=== PATIENT | male | born 1935 | race Caucasian/White ===

== ENCOUNTER 2017-06-12 15:55 | Emergency (ER) | payer MEDICARE, MEDICAID ==
[~2017-06-12] VITALS: Ht 177.8 cm; Wt 90.0 kg
[~2017-06-12 15:55] MED LIST: AMLODIPINE5 MG PO; ASPIRIN ADULT L81 M2 PO; CIPRO500 MG OR; CIPROFLOXACN250 MG PO; CIPROFLOXACN500 MG PO; COUMADIN4 MG OR; DONEPEZIL5 MG PO; FERROUS SULF325 M2 PO; FLOMAX0.4 M1 PO; LANOXIN0.25 MG OR; LISINOPRIL40 MG PO; METO50TA52 PO; OMEPRAZOLE20 MG OR; OMEPRAZOLE20 MG PO; PANTOPRAZOLE SO40 MG PO; PRAVASTATIN40 MG PO; SB ASA LOW81 MG OR; SIMVASTATIN80 MG OR; WARFARIN2 MG OR; WARFARIN4 MG PO
[2017-06-12] MEDS ORDERED: AMLODIPINE5 MG PO (16:08)
[2017-06-12 16:35] LABS: HEMATOCRIT 41.4 % (39.0-50.0); HEMOGLOBIN 13.3 g/dl (14.0-18.0); IMMATURE GRANULOCYTES 0.5 % (0.0-1.0); MEAN CELL VOLUME 94.1 fL CALC (80.0-100.0); MEAN CORPUSCULAR HGB 30.2 pG CALC (26.0-32.0); MEAN CORPUSCULAR HGB CONC 32.1 g/L CALC (32.0-36.0); NEUT# 6.44 thou/uL (1.82-7.42); RED BLOOD COUNT 4.4 mill/uL (4.70-6.10); RED CELL DISTRI WIDTH 13.7 % (11.5-15.5)
[2017-06-12 16:52] LABS: INTERNATIONAL NORMALIZED RATIO 1.5 RATIO (0.7-1.3); PROTHROMBIN TIME 17.4 SECONDS (9.0-12.5)
[2017-06-12 16:55] LABS: ALBUMIN 3.8 g/dL (3.2-5.0); ALKALINE PHOSPHATASE 101 u/l (38-126); ANION GAP 17 (6-22 (CALC)); BILIRUBIN, TOTAL 0.8 mg/dL (0.0-1.4); BUN 16 mg/dL (8-23); BUN/CREATININE RATIO 13 (12-20 (CALC)); CALCIUM 8.8 mg/dL (8.4-10.2); CARBON DIOXIDE 22 mmol/l (22-30); CHLORIDE 109 mmol/l (95-108); CREATININE 1.2 mg/dL (0.7-1.3); GFR 58 ML/MIN (>=60 (CALC)); GFR FOR AFR.AMER. > 60 ML/MIN (>=60 (CALC)); GLUCOSE 107 mg/dL (82-115); SGOT/AST 27 u/l (19-48); SGPT/ALT 24 u/l (11-66); SODIUM 144 mmol/l (137-146); TOTAL PROTEIN 6.6 g/dL (6.3-8.2)
[2017-06-12 19:31] VITALS: BP 112/74
== END 2017-06-12 19:33 | disposition short-term general hospital (02) ==
LOC: ED 15:55
PROVIDERS: Emergency Medicine
DX: S72.122A Displaced fracture of lesser trochanter of left femur, initial encounter for closed fracture (principal); S72.342A Displaced spiral fracture of shaft of left femur, initial encounter for closed fracture; M25.512 Pain in left shoulder; M25.552 Pain in left hip; W01.0XXA Fall on same level from slipping, tripping and stumbling without subsequent striking against object, initial encounter; Y93.H9 Activity, other involving exterior property and land maintenance, building and construction; Y92.008 Other place in unspecified non-institutional (private) residence as the place of occurrence of the external cause

== ENCOUNTER 2018-11-23 17:02 | Emergency (ER) | payer MEDICARE, MEDICAID ==
[~2018-11-23] VITALS: Ht 177.8 cm; Wt 78.0 kg
[2018-11-23] MEDS ORDERED: LOPRESSOR 550 MG/TAB PO (17:52)
[2018-11-23] MEDS ORDERED: SLOW-MAG PO (17:57)
[2018-11-23 18:35] LABS: HEMATOCRIT 38.4 % (39.0-50.0); IMMATURE GRANULOCYTES 0.4 % (0.0-5.0); MEAN CORPUSCULAR HGB 29.1 pG CALC (26.0-32.0); MEAN CORPUSCULAR HGB CONC 31.3 g/L CALC (32.0-36.0); NEUT# 3.51 thou/uL (1.82-7.42); RED BLOOD COUNT 4.13 mill/uL (4.70-6.10); RED CELL DISTRI WIDTH 14.6 % (11.5-15.5)
[2018-11-23 18:58] LABS: ACT PARTIAL THROMBO TIME 40.4 SECONDS (20.0-32.5)
[2018-11-23 18:59] LABS: ALBUMIN 3.3 g/dL (3.2-5.0); ALKALINE PHOSPHATASE 83 u/l (38-126); ANION GAP 10 (6-22 (CALC)); BILIRUBIN, TOTAL 0.4 mg/dL (0.0-1.4); BUN 17 mg/dL (8-23); BUN/CREATININE RATIO 16 (12-20 (CALC)); CARBON DIOXIDE 26 mmol/l (22-30); CHLORIDE 109 mmol/l (95-108); CREATININE 1.1 mg/dL (0.7-1.3); GFR > 60 ML/MIN (>=60 (CALC)); GFR FOR AFR.AMER. > 60 ML/MIN (>=60 (CALC)); POTASSIUM 4.3 mmol/l (3.5-5.1); SGOT/AST 24 u/l (19-48); SODIUM 141 mmol/l (137-146)
[2018-11-23 19:03] LABS: INTERNATIONAL NORMALIZED RATIO 3.4 RATIO (0.7-1.3); PROTHROMBIN TIME 34.9 SECONDS (9.0-12.5)
[2018-11-23 19:50] VITALS: BP 144/77
== END 2018-11-23 19:52 | disposition home or self-care (01) ==
LOC: ED 17:02
DX: R04.0 Epistaxis (principal); T45.515A Adverse effect of anticoagulants, initial encounter; I10 Essential (primary) hypertension; Z95.0 Presence of cardiac pacemaker; I48.91 Unspecified atrial fibrillation; Z79.01 Long term (current) use of anticoagulants

== ENCOUNTER 2019-01-15 10:01 | Emergency (ER) | payer MEDICARE, MEDICAID ==
[~2019-01-15] VITALS: Ht 177.8 cm; Wt 65.0 kg
[~2019-01-15 10:01] MED LIST changes: +AMLODIPINE BESYL5 MG PO; +LOPRESSOR 550 MG/TAB PO; +SLOW-MAG PO
[2019-01-15] MEDS ORDERED: PERCOCET 5/325M1 TAB PO (11:49)
[2019-01-15] MEDS ORDERED: KEFLEX500 M1 PO (11:49)
[2019-01-15 12:30] VITALS: BP 138/70
[2019-01-15] MEDS ORDERED: OMEPRAZOLE DR20 MG PO (12:33)
== END 2019-01-15 12:30 | disposition home or self-care (01) ==
LOC: ED 10:01
PROC: 2W3CX1Z Immobilization of Right Lower Arm using Splint (ICD-10-PCS; principal; 2019-01-15)
DX: S52.591A Other fractures of lower end of right radius, initial encounter for closed fracture (principal); I10 Essential (primary) hypertension; I48.91 Unspecified atrial fibrillation; W01.0XXA Fall on same level from slipping, tripping and stumbling without subsequent striking against object, initial encounter; Y92.009 Unspecified place in unspecified non-institutional (private) residence as the place of occurrence of the external cause; Z95.0 Presence of cardiac pacemaker

== ENCOUNTER 2021-10-21 12:10 | Emergency (ER) | payer MEDICARE, MEDICAID ==
[~2021-10-21] VITALS: Ht 177.8 cm; Wt 73.6 kg
[2021-10-21 12:10] VITALS: BP 140/73
[~2021-10-21 12:10] MED LIST changes: +KEFLEX500 M1 PO; +OMEPRAZOLE DR20 MG PO; +PERCOCET 5/325M1 TAB PO
== END 2021-10-21 13:24 | disposition home or self-care (01) ==
LOC: ED 12:10
DX: S51.011A Laceration without foreign body of right elbow, initial encounter (principal); M25.511 Pain in right shoulder; I10 Essential (primary) hypertension; I48.91 Unspecified atrial fibrillation; W01.0XXA Fall on same level from slipping, tripping and stumbling without subsequent striking against object, initial encounter; Y92.009 Unspecified place in unspecified non-institutional (private) residence as the place of occurrence of the external cause; Z95.0 Presence of cardiac pacemaker

== ENCOUNTER 2021-10-29 15:12 | Observation (INO) | payer MEDICARE, MEDICAID ==
[2021-10-29] VITALS (7 sets, daily range): BP systolic 103–130; BP diastolic 56–88
[~2021-10-29] VITALS: Ht 177.8 cm; Wt 74.0 kg
[~2021-10-29 15:12] MED LIST changes: -LOPRESSOR 550 MG/TAB PO; +MAGNESIUM OXID400 M1 PO; +METOPROLOL SUCC50 MG PO; -SLOW-MAG PO
--- NOTE | 2021-10-29 16:00 | NUR ---
PT AMBULATES TO ROOM WITH AT BEDSIDE FOR EVAL OF GEN WEAKNESS, BACK AND ABD PAIN
[2021-10-29 17:09] LABS: ALBUMIN 3.6 g/dL (3.2-5.0); BILIRUBIN, TOTAL 0.5 mg/dL (0.0-1.4); MAGNESIUM 2.3 mg/dL (1.6-2.3); POTASSIUM 4.9 mmol/l (3.5-5.1); TOTAL PROTEIN 6.7 g/dL (6.3-8.2)
[2021-10-29 17:10] LABS: ACT PARTIAL THROMBO TIME 30.8 SECONDS (20.0-32.5)
[2021-10-29 17:15] LABS: PROTHROMBIN TIME 20.3 SECONDS (9.0-12.5)
[2021-10-29 17:20] LABS: IMMATURE GRANULOCYTES 0.2 % (0.0-5.0); MEAN CELL VOLUME 96.4 fL CALC (80.0-100.0); MEAN CORPUSCULAR HGB 29.8 pG CALC (26.0-32.0); MEAN CORPUSCULAR HGB CONC 30.9 g/dL CAL (32.0-36.0); NEUT# 4.79 thou/uL (1.82-7.42); RED BLOOD COUNT 3.36 mill/uL (4.70-6.10); RED CELL DISTRI WIDTH 14.8 % (11.5-15.5)
[2021-10-29 17:24] LABS: HEMATOCRIT 32.4 % (39.0-50.0)
--- NOTE | 2021-10-29 17:25 | NUR ---
URINAL PROVIDED TO PT TO ENCOURAGE URINATION FOR SAMPLE
--- NOTE | 2021-10-29 18:11 | NUR ---
URINE SAMPLE COLLECTED AT THIS TIME. PT RESTING COMFORTBALY, VSS
[2021-10-29 18:15] LABS: URINE BILIRUBIN - DIPSTICK NEGATIVE (NEGATIVE); URINE BLOOD DIPSTICK NEGATIVE (NEGATIVE); URINE COLOR YELLOW; URINE GLUCOSE - DIPSTICK NEGATIVE (NEGATIVE); URINE KETONE NEGATIVE (NEGATIVE); URINE LEUK ESTERASE NEGATIVE (NEGATIVE); URINE PROTEIN - DIPSTICK NEGATIVE (NEG-TRACE); URINE UROBILINOGEN - DIPSTICK 0.2 E.U./dL (0.2)
[2021-10-29 18:18] LABS: URINE NITRITE - DIPSTICK NEGATIVE (Negative)
--- NOTE | 2021-10-29 19:06 | NUR ---
Reassessment of patient completed. No distress noted.
--- NOTE | 2021-10-29 20:55 | NUR ---
PT TRANSPORTED TO ROOM 270 VIA WHEELCHAIR BY RN. PT ORIENTED TO ROOM AND GREETED BY RN AND STAFF.
--- NOTE | 2021-10-29 22:00 | NUR ---
PATIENT ADMITTED FROM ER VIA WHEELCHAIR WITH ER STAFF IN ATTENDANCE. PATIENT IS ABLE TO TRANSFER TO THE BED-STEADY ON HIS FEET. AWAKE ALERT AND ORIJENTEDX3. PATIENT ADMITTED FOR DEHYDRATION AND CAM. STATES THAT HE DID HAVE FAIRLY RECENT FALL AT HOME AND FEELING WEAK. TELE MONITOR APPLIED AND READING A-FIB 80'S. PATIENT WITH IV SITE TO LAC INTACT AND IVF NS HUNG AND INFUSING AT 100CC/HR. LUNGS ARE CLEAR. ABD IS SOFT WITH ACTIVE BS. LAST BM WAS YESTERDAY 10/28. STATES THAT HE IS VOIDING OK BUT DOES GET UP A COUPLE TIMES AT NIGHT. NO PERIPHERAL EDEMA-PULSES ARE PALPABLE. STATES THAT HE DID HAVE FALL FAIRLY RECENTLY AND HAS ABRASION TO RIGHT ARM. DRESSING WAS REMOVED WITH SMALL AMT OF OLD BLOODY DRAINAGE NOTED. PHOTO WAS TAKEN FOR THE CHART. STERI-STRIPS IN PLACE WOUND COVERED WITH TELFA AND GAUZE WRAP APPLIED. SECURED WITH CCOBAN. PATIENT ORIENTED TO ROOM AND SURROUNDINGS. INSTRUCTED ON USE OF NURSE CALL LIGHT SYSTEM AND TV REMOTE. SAFETY PRECAUTIONS REINFORCED. CALL LIGHT IN REACH. WILL CONT TO MONITOR.
[2021-10-30] VITALS (7 sets, daily range): BP systolic 106–126; BP diastolic 49–565
--- NOTE | 2021-10-30 04:21 | NUR ---
PATIENT RESTING IN BED WITH EYES CLOSED. RESPS ARE EVEN AND UNLABORED. TELE MONITOR IN PLACE. IVF NS PATENT AND INFUSING VIA LAC AT 100CC/HR. CALL LIGHT IN REACH. WILL CONT TO MONITOR.
[2021-10-30 05:16] LABS: HEMOGLOBIN 9.4 g/dl (14.0-18.0); MEAN CELL VOLUME 96.8 fL CALC (80.0-100.0); MEAN CORPUSCULAR HGB 30.3 pG CALC (26.0-32.0); MEAN CORPUSCULAR HGB CONC 31.3 g/dL CAL (32.0-36.0); RED BLOOD COUNT 3.1 mill/uL (4.70-6.10); RED CELL DISTRI WIDTH 14.8 % (11.5-15.5)
[2021-10-30 05:35] LABS: CREATININE 1.6 mg/dL (0.7-1.3); POTASSIUM 4.4 mmol/l (3.5-5.1)
--- NOTE | 2021-10-30 06:54 | NUR ---
Patient is screened for intervention and would benefit from PT consult if medical agrees
--- NOTE | 2021-10-30 07:15 | NUR ---
RECEIVED REPORT FROM NICANOR HEADLEY.
--- NOTE | 2021-10-30 08:40 | NUR ---
PT RESTING IN LOW FOWLERS POSITION AWOKE UPON GREETING. A/OX3 ASSESSMENT AND VS COMPLETED . HEART RHYTHM IRREGULAR WITH TELE IN PLACE. RESPIRATIONS EVEN AND UNLABORED. BOWEL SOUNDS ACTIVE. IV 20G LAC PATENT/NS@100. PT ASSISTED WITH SETTING UP BREAKFAST TRAY. PT DENIES ADDITIONAL NEEDS AT THE MOMENT. ALL SAFETY PRECAUTIONS IN PLACE WITH CALL LIGHT IN REACH.
[2021-10-30] MEDS ORDERED: ASPIRIN 81 LOW81 MG PO (09:17)
[2021-10-30] MEDS ORDERED: FUROSEMIDE20 MG PO (09:18)
[2021-10-30] MEDS ORDERED: ALLERGY RE50 MCG/ACT (09:25)
[2021-10-30] MEDS ORDERED: MEDDOSEPAK PO (09:36)
--- NOTE | 2021-10-30 12:40 | NUR ---
PT RESTING IN LOW FOWLERS POSITION .TELE IN PLACE .PT DENIES ADDITIONAL NEEDS AT THE MOMENT. ALL SAFETY PRECAUTIONS IN PLACE WITH CALL LIGHT IN REACH.
--- NOTE | 2021-10-30 15:41 | NUR ---
PT RESTING IN LOW FOWLERS POSITION . PT DENIES ADDITIONAL NEEDS AT THE MOMENT TELE IN PLACE . ALL SAFETY PRECAUTIONS IN PLACE WITH CALL LIGHT IN REACH.
--- NOTE | 2021-10-30 17:43 | NUR ---
#20G LAC LEAKING, REMOVED WITH CATH INTACT. PT TO BE DC. NO NEW IV AND TELE REMOVED. ER INFORMED.
--- NOTE | 2021-10-30 18:23 | NUR ---
PT AND IWFE EDUCATED ON DC INSTRUCTIONS AND CHANGE IN MEDICATIONS. VERBLAIZED UNDERSTANDING. IV AND TELE REMOVED. PT INFORMED OF CM FOLLOW UP FOR HOME HEALTH. VERBLAIZED UNDERSTANDING.
--- NOTE | 2021-10-30 18:31 | NUR ---
Discharge instructions given. Patient verbalizes understanding of same. Discharged in stable condition via Wheelchair to Home with staff. All belongings sent with pt. PT DC WITH ALL DC INSTRUCTIONS AND PERSONAL BELONGINGS ACCOMPAINED BY VIDEO SURVEILLANCE TECHNICIAN AND
== END 2021-10-30 18:26 | disposition home or self-care (01) ==
LOC: ED 15:12 → ED-I 19:10 → ED 19:31 → MS2 19:32
PROVIDERS: ADMIT Internal Medicine; ATTEND Internal Medicine
DX: E86.0 Dehydration (principal); N17.9 Acute kidney failure, unspecified; T46.4X5A Adverse effect of angiotensin-converting-enzyme inhibitors, initial encounter; T50.1X5A Adverse effect of loop [high-ceiling] diuretics, initial encounter; I10 Essential (primary) hypertension; I48.91 Unspecified atrial fibrillation; E78.5 Hyperlipidemia, unspecified; I71.4 Abdominal aortic aneurysm, without rupture; I71.2 Thoracic aortic aneurysm, without rupture; Z95.828 Presence of other vascular implants and grafts; Z79.01 Long term (current) use of anticoagulants; Z95.0 Presence of cardiac pacemaker; Z20.822 Contact with and (suspected) exposure to COVID-19
CPT/HCPCS: G0378

== ENCOUNTER 2022-04-15 16:31 | Emergency (ER) | payer MEDICARE, MEDICAID ==
[2022-04-15] VITALS (18 sets, daily range): BP systolic 115–158; BP diastolic 60–81
[~2022-04-15] VITALS: Ht 177.8 cm; Wt 73.0 kg
[~2022-04-15 16:31] MED LIST changes: +ALLERGY RE50 MCG/ACT; +ASPIRIN 81 LOW81 MG PO; +FUROSEMIDE20 MG PO; +MEDDOSEPAK PO
[2022-04-15] MEDS ORDERED: PREVACID15 M2 PO (16:43)
[2022-04-15 17:05] LABS: HEMOGLOBIN 12.4 g/dl (14.0-18.0); IMMATURE GRANULOCYTES 0.2 % (0.0-5.0); MEAN CELL VOLUME 93.4 fL CALC (80.0-100.0); MEAN CORPUSCULAR HGB 29.1 pG CALC (26.0-32.0); MEAN CORPUSCULAR HGB CONC 31.2 g/dL CAL (32.0-36.0); NEUT# 3.64 thou/uL (1.82-7.42); RED BLOOD COUNT 4.26 mill/uL (4.70-6.10); RED CELL DISTRI WIDTH 15.8 % (11.5-15.5)
[2022-04-15 17:06] LABS: HEMATOCRIT 39.8 % (39.0-50.0)
[2022-04-15 17:24] LABS: BILIRUBIN, TOTAL 0.7 mg/dL (0.0-1.4); CREATININE 1.6 mg/dL (0.7-1.3); POTASSIUM 4.9 mmol/l (3.5-5.1); TOTAL PROTEIN 7.5 g/dL (6.3-8.2)
[2022-04-15 21:01] LABS: URINE BILIRUBIN - DIPSTICK NEGATIVE (NEGATIVE); URINE BLOOD DIPSTICK NEGATIVE (NEGATIVE); URINE COLOR YELLOW; URINE GLUCOSE - DIPSTICK NEGATIVE (NEGATIVE); URINE KETONE 15 mg/dL (NEGATIVE); URINE LEUK ESTERASE NEGATIVE (NEGATIVE); URINE PROTEIN - DIPSTICK NEGATIVE (NEG-TRACE)
[2022-04-15 21:06] LABS: URINE NITRITE - DIPSTICK NEGATIVE (Negative)
[2022-04-15] MEDS ORDERED: CITRATE OF MEGNESIA PO (21:08)
[2022-04-15] MEDS ORDERED: MIRALAX17 GM PO (21:08)
== END 2022-04-15 21:54 | disposition home or self-care (01) ==
LOC: ED 16:31
PROVIDERS: Family Medicine
DX: R10.31 Right lower quadrant pain (principal); R10.32 Left lower quadrant pain; I10 Essential (primary) hypertension; I48.91 Unspecified atrial fibrillation; Z95.0 Presence of cardiac pacemaker; R30.0 Dysuria; B95.4 Other streptococcus as the cause of diseases classified elsewhere
CPT/HCPCS: Q9967

== ENCOUNTER 2022-10-01 12:25 | Emergency (ER) | payer MEDICARE, MEDICAID ==
[~2022-10-01] VITALS: Ht 177.8 cm; Wt 65.0 kg
[2022-10-01] VITALS (8 sets, daily range): BP systolic 124–142; BP diastolic 61–86
[~2022-10-01 12:25] MED LIST changes: +CITRATE OF MEGNESIA PO; +MIRALAX17 GM PO; +PREVACID15 M2 PO
[2022-10-01] MEDS ORDERED: DONEPEZIL HYDROC5 MG (12:47)
[2022-10-01 13:50] LABS: BASO% 0.3 % (0-3); EOS% 0.3 % (0-8); HEMATOCRIT 37.7 % (39.0-50.0); HEMOGLOBIN 11.5 g/dl (14.0-18.0); LYMPH% 23.4 % (15-41); MEAN CELL VOLUME 96.2 fL CALC (80.0-100.0); MEAN CORPUSCULAR HGB 29.3 pG CALC (26.0-32.0); MEAN CORPUSCULAR HGB CONC 30.5 g/dL CAL (32.0-36.0); MONO% 7.1 % (2-13); NEUT# 2.62 thou/uL (1.82-7.42); NEUT% 68.9 % (42-76); RED BLOOD COUNT 3.92 mill/uL (4.70-6.10); RED CELL DISTRI WIDTH 14.2 % (11.5-15.5)
[2022-10-01 14:04] LABS: INTERNATIONAL NORMALIZED RATIO 2.3 RATIO (0.7-1.3); PROTHROMBIN TIME 21.7 SECONDS (9.0-12.5)
[2022-10-01 14:05] LABS: ALBUMIN 3.7 g/dL (3.2-5.0); ALKALINE PHOSPHATASE 69 u/l (38-126); ANION GAP 7 (6-22 (CALC)); BILIRUBIN, TOTAL 0.5 mg/dL (0.2-1.3); BUN 33 mg/dL (8-23); BUN/CREATININE RATIO 20 (12-20 (CALC)); CARBON DIOXIDE 25 mmol/l (22-30); CHLORIDE 108 mmol/l (95-108); CREATININE 1.7 mg/dL (0.7-1.3); GFR FOR AFR.AMER. 46 ML/MIN (>=60 (CALC)); GFR OTHER RACES 38 ML/MIN (>=60 (CALC)); POTASSIUM 4.5 mmol/l (3.5-5.1); SGOT/AST 32 u/l (19-48); SODIUM 135 mmol/l (137-146); TOTAL PROTEIN 6.6 g/dL (6.3-8.2)
== END 2022-10-01 15:31 | disposition home or self-care (01) ==
LOC: ED 12:25
PROVIDERS: Family Medicine
DX: I48.91 Unspecified atrial fibrillation (principal); I10 Essential (primary) hypertension; Z95.0 Presence of cardiac pacemaker

== ENCOUNTER 2023-02-27 06:51 | Day surgery (SDC) | payer MEDICARE, MEDICAID ==
[~2023-02-27 06:51] MED LIST changes: +DONEPEZIL HYDROC5 MG; +ELIQUIS2.5 MG PO
[2023-02-27 10:00] VITALS: BP 145/75
== END 2023-02-27 10:07 | disposition home or self-care (01) ==
LOC: ORM 06:51
PROVIDERS: ATTEND Urology
PROC: 0VB03ZX Excision of Prostate, Percutaneous Approach, Diagnostic (ICD-10-PCS; principal; 2023-02-27)
DX: C61 Malignant neoplasm of prostate (principal); N40.1 Benign prostatic hyperplasia with lower urinary tract symptoms; N13.8 Other obstructive and reflux uropathy; I12.9 Hypertensive chronic kidney disease with stage 1 through stage 4 chronic kidney disease, or unspecified chronic kidney disease; N18.2 Chronic kidney disease, stage 2 (mild); Z87.891 Personal history of nicotine dependence; R35.0 Frequency of micturition; I48.91 Unspecified atrial fibrillation; E78.5 Hyperlipidemia, unspecified; G60.3 Idiopathic progressive neuropathy
CPT/HCPCS: J1956